=== PATIENT | female | born 1950 | race Caucasian/White ===

== ENCOUNTER → 2024-06-09 06:30 | Outpatient (REF) | payer MEDICARE, SELFPAY | LOC: MRI 06:30 | PROVIDERS: ATTENDING PHYSICIAN Physician Assistant; FAMILY PHYSICIAN Family Medicine | DX: M54.12 Radiculopathy, cervical region (principal); M50.90 Cervical disc disorder, unspecified, unspecified cervical region | CPT/HCPCS: 72141 ==

== ENCOUNTER → 2024-07-19 10:47 | Outpatient (REF) | payer MEDICARE, SELFPAY | LOC: RAD 10:47 | PROVIDERS: ATTENDING PHYSICIAN Physician Assistant | DX: E04.1 Nontoxic single thyroid nodule (principal) | CPT/HCPCS: 76536 ==